=== PATIENT | male | born 1950 | race Caucasian/White ===

== ENCOUNTER 2024-08-06 10:30 | Day surgery (SDC) | payer MEDICARE, OTHER ==
[~2024-08-06] VITALS: Ht 185.4 cm; Wt 100.0 kg
[~2024-08-06 10:30] MED LIST: CEFAZOLIN SODIUM 2 GM/20 ML SYR IV SCH; CEPHALEXIN500 MG PO; CIALIS5 MG PO; CYMBALTA30 MG PO; DICLOFENAC POTA50 MG PO; DULOXETINE HCL60 MG PO; FLOVENT HFA10.6 GM INH; GABAPENTIN600 MG PO; IBLOOD GLUCOSE TEST STRIP 1 EA TEST VI PRN; IBUPROFEN600 MG PO; KETOROLAC TROMETHAMINE 30 MG/ML VIAL ONE; LACTATED RINGER'S 1,000 ML IV SCH; LIDOCAINE HCL 1% 5 ML SDV INJ ONE; LIPITOR10 MG PO; MAGNESIUM500 MG PO; MAPAP500 M1 PO; NORCO 5-325 TA1 EACH PO; OXYCODON-ACETA1 EAC2 PO; OXYCODONE HCL5 MG PO; PERIDEX473 M1 MM; PROBIOTIC1 EAC1 PO; QVAR7.3 G1 INH; SENNA LAX8.6 MG PO; SEVOFLURANE 250 ML BTL INH ONE; TAMSULOSIN HCL0.4 MG PO; TRANEXAMIC ACID IN NACL,ISO-OS 1,000 MG/100 ML PIGGYBACK IV SCH; TYLENOL325 MG PO; ULTRAM50 MG PO; VENTOLIN HFA18 GM INH; VITAMIN B COMP1 EACH PO; VITAMIN C500 M1 PO; VITAMIN D31000 UNI1 PO; XARELTO10 MG PO
[2024-08-06 10:48] VITALS: BP 123/64
[2024-08-06] MEDS ORDERED: LIDOCAINE HCL 2% 5 ML SDV ONE (10:48)
[2024-08-06] MEDS ORDERED: propofoL 200 MG/20 ML VIAL ONE (10:48)
[2024-08-06] MEDS ORDERED: fentaNYL citrate 100 MCG/2 ML VIAL ONE (10:51)
[2024-08-06] MEDS ORDERED: ARNUITY ELLIPT50 MCG (11:02)
[2024-08-06] MEDS ORDERED: HYDROCODONE/ACETA 7.5/325 TAB PO PRN (11:15)
--- NOTE | 2024-08-06 11:21 | NUR ---
TXA 2000MG GIVEN IV PREOP.
[2024-08-06] MEDS ORDERED: DEXAMETHASONE SOD PHOS 4 MG/ML VIAL ONE (11:22)
[2024-08-06] MEDS ORDERED: ondansetron HCL 4 MG/2 ML VIAL ONE (11:22)
[2024-08-06] MEDS ORDERED: ACETAMINOPHEN 1,000 MG/100 ML VIAL ONE (11:22)
[2024-08-06] MEDS ORDERED: TRANEXAMIC ACID IN NACL,ISO-OS 1,000 MG/100 ML PIGGYBACK IV ONE (11:30)
[2024-08-06] MEDS ORDERED: IBLOOD GLUCOSE TEST STRIP 1 EA TEST VI PRN (12:00)
[2024-08-06] MEDS ORDERED: fentaNYL citrate 50 MCG/ML SDV IV PRN (12:00)
[2024-08-06] MEDS ORDERED: HYDROmorphone HCL 1 MG/ML SYR IV PRN (12:00)
[2024-08-06] MEDS ORDERED: ondansetron HCL 4 MG/2 ML VIAL IV PRN (12:00)
[2024-08-06] MEDS ORDERED: NALOXONE HCL 0.4 MG SYR IV PRN (12:00)
[2024-08-06] MEDS ORDERED: HYDROCODON-ACE1 EA11 PO (12:04)
[2024-08-06] MEDS ORDERED: KETOROLAC TROME10 MG PO (12:05)
--- NOTE | 2024-08-06 12:16 | NUR ---
08/06/24 1216 Mary Flores 1207-PT ARRIVES TO PACU VIS STRETCHER, RESTING SEMI FOWLERS, PT A+O X4 PT DENIES ANY PAIN OR NASUEA, VSS ON RA, RR EVEN AND UNLABORED. ICE PACK APPLIED TO LT KNEE. 1215-PT SITTIG UP IN BED SIPPING ON WATER, DENIES PAIN OR NAUSEA, VSS ON RA.
[2024-08-06] MEDS ORDERED: CELEBREX200 MG PO (12:26)
[2024-08-06 12:27] VITALS: BP 135/72
--- NOTE | 2024-08-06 13:27 | NUR ---
STATES HE ATE [employer] FROM [employer] [facility] AND WANTS TO GO HOME. NEEDS TO VOID .
--- NOTE | 2024-08-06 14:14 | NUR ---
1350 AMB SLOWLY WITH CANE TO BR VOIDS 150MLS URINE. WANTS TO GO HOME.
[2024-08-06] MEDS ORDERED: CELECOXIB 200 MG CAP PO SCH (17:00)
--- NOTE | 2024-08-07 13:23 | OR ---
[facility] [address], [place] [address] Signed DATE OF OPERATION: 08/06/2024 SURGEON: Sheeba Layne MD PREOPERATIVE DIAGNOSIS: Medial meniscus tear, left knee. POSTOPERATIVE DIAGNOSIS: Medial meniscus tear, left knee. PROCEDURE PERFORMED: Left knee arthroscopy with partial medial meniscectomy. PIPE FITTER: Justyna Boone PA-C. Justyna was present and critical for all portions of procedure. ANESTHESIA: General. BLOOD LOSS: Minimal. 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 MRI was consistent with a posteromedial meniscus tear. Risks and benefits of operative treatment were discussed with him and he elected to proceed. Once consent was obtained, he was taken to the operating room. After adequate anesthesia, he was placed on the operating table, right leg was flexed, abducted and externally rotated on a well-padded leg reyes. The left was placed in well-padded proximal thigh leg reyes and prepped and draped in the standard sterile fashion. Portal sites were injected with 0.25% Marcaine with epinephrine. The standard inferolateral and superolateral portals were made and the scope was introduced into the knee. ARTHROSCOPIC FINDINGS: There was extensive synovitis throughout the knee. 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 Medial and lateral gutters were clear. ACL and PCL were intact. Lateral compartment was intact. Medial compartment showed diffuse areas a grade 3 chondromalacia to the medial half of the medial femoral condyle. There was a complex tear of the medial meniscus extending from mid medial body all the way around Electronically Signed By: SHEEBA LAYNE MD 08/07/24 1323 PATIENT NAME: SARATH FULLER OPERATIVE REPORT DATE OF : 54 REPORT #: [id number] PHYSICIAN: SHEEBA LAYNE MD PCP: CHAPINCITO DAVILA MD REPORT IS CONFIDENTIAL AND NOT TO BE RELEASED WITHOUT AUTHORIZATION [facility] [address], [place] [address] Signed posteriorly. DESCRIPTION OF THE OPERATION: The inferomedial portal was established after localization using a spinal needle. Straight and curved biters were used to trim the meniscus tear back to a stable rim anteriorly and posteriorly. This was then smoothed then feathered out using the shaver. All debris was evacuated. The chondral flaps on the femur were debrided. The scope was then withdrawn. Portals were closed with 3-0 nylon and the knee was injected with 60 mg of Toradol. The wounds were dressed with Adaptic, ABD, and Derrick wrap. He tolerated the procedure well. All sponge, needle, and instrument counts were correct. Sheeba Layne MD BA/HONORIOL /[id number] Copies: ~ Electronically Signed By: SHEEBA LAYNE MD 08/07/24 1323 PATIENT NAME: SARATH FULLER OPERATIVE REPORT DATE OF : 54 REPORT #: [id number] PHYSICIAN: SHEEBA LAYNE MD PCP: CHAPINCITO DAVILA MD REPORT IS CONFIDENTIAL AND NOT TO BE RELEASED WITHOUT AUTHORIZATION
== END 2024-08-06 14:05 | disposition home or self-care (01) ==
LOC: DS 10:30
PROVIDERS: ATTEND Specialist
PROC: 0SBD4ZZ Excision of Left Knee Joint, Percutaneous Endoscopic Approach (ICD-10-PCS; principal; 2024-08-06 12:00)
DX: S83.242A Other tear of medial meniscus, current injury, left knee, initial encounter (principal); X58.XXXA Exposure to other specified factors, initial encounter; M22.42 Chondromalacia patellae, left knee; M65.88 Other synovitis and tenosynovitis, other site; E78.5 Hyperlipidemia, unspecified; J45.909 Unspecified asthma, uncomplicated; Z87.891 Personal history of nicotine dependence; Z79.899 Other long term (current) drug therapy
CPT/HCPCS: 01400; A9270; J0131; J0690; J1100; J1885; J2003; J2405; J2704; J3010; J7121

== ENCOUNTER 2025-04-22 05:42 | Day surgery (SDC) | payer MEDICARE, OTHER | END 2025-04-22 14:10 | disposition home or self-care (01) | LOC: DS 05:42 | PROC: 0SRD0JZ Replacement of Left Knee Joint with Synthetic Substitute, Open Approach (ICD-10-PCS; principal; 2025-04-22) | DX: M17.12 Unilateral primary osteoarthritis, left knee (principal); J45.909 Unspecified asthma, uncomplicated; E78.5 Hyperlipidemia, unspecified; Z79.899 Other long term (current) drug therapy; Z87.891 Personal history of nicotine dependence | CPT/HCPCS: 0055T; 27447 ==